=== PATIENT | female | born 1960 | race Caucasian/White ===

== ENCOUNTER → 2016-07-18 | Day surgery (SDC) | payer MEDICARE, OTHER ==
[~2016-07-18] MED LIST: ASPIRIN81 M2 PO; CELEBREX PO; CERTAGEN PO; CITALOPRAM HBR40 M1 PO; DIPHENYDRAMINE25 MG PO; FLEXERIL PO; GABAPENTIN400 MG PO; LAMICTAL PO; LAMICTAL25 MG PO; LODINE500 MG PO; LORTAB 10/500 T1 TAB PO; MOBIC PO; MOBIC15 MG PO; OXYCODONE HCL15 MG PO; OYSTER CALCIUM500 MG PO; PERCOCET 10/3251 TAB PO; PREDNISONE PO; ZANAFLEX4 M1 PO
--- NOTE | ~2016-07-18 | OR ---
Unit #: [id number] #: [id number] Patient: JEANETTE HALL [id number] [address] [place], [place] [address] [id number] MR#: [id number] NAME: JEANETTE HALL ROOM: Date of Procedure: 07/18/2016 Admission Date: 07/18/2016 Surgeon: Oscar Barajas M.D. : 1960 Attending Physician: Oscar Barajas M.D. Primary Care Physician: [facility]. OPERATIVE REPORT PREOPERATIVE DIAGNOSES 1. Herniated nucleus pulposus. 2. Radiculopathy. POSTOPERATIVE DIAGNOSES 1. Herniated nucleus pulposus. 2. Radiculopathy. PROCEDURE PERFORMED Transforaminal epidural steroid injection with intravenous sedation and fluoroscopic guidance for needle localization. INDICATIONS FOR PROCEDURE The patient is a 56-year-old female with return of right lower extremity pain associated with a known right L5-S1 disk herniation. She has lesser symptoms on the left. She has failed extensive prior conservative treatment and she is not interested in surgery. Epidural steroids in the past not very helpful. Now, the transforaminal injections have given her a very good relief. Last injection was done in early February. She got almost 5 months of fairly good relief. The pain has been increasing over the last month or so. Based on her history, pathology, and symptomatology, we are going to proceed with a second injection today. DESCRIPTION OF PROCEDURE The patient was placed in the prone position. Standard monitors were applied. 4 mg of Versed were given for sedation and anxiolysis, which were adequate. Vital signs remained stable. Sterile prep and drape of the lumbar area was performed. The skin at the L5-S1 level was localized with 1% lidocaine. A long 20-gauge Quincke point spinal needle was then advanced with biplanar fluoroscopic guidance to bring the needle tip within the neural foramina of the right at the L5-S1 level. The patient had mild paresthesia and this abated with maneuvering the needle. Position was confirmed with biplanar fluoroscopy and radiographic contrast. A dose of 80 mg of Depo-Medrol and 1 mL of 0.25% bupivacaine was then deposited. The patient tolerated the procedure otherwise well and was discharged to the recovery room in stable condition. Dictated by... Oscar Barajas M.D. [facility] Unit #: [id number] #: [id number] Patient: JEANETTE HALL TD: 07/18/2016 10:13 JOB #: [id number] OPERATIVE REPORT Page 1 of 1 X Oscar Barajas MD X PROCEDURE OPERATIVE NOTE
== END | disposition home or self-care (01) ==
LOC: CCSC 08:06
DX: M51.17 Intervertebral disc disorders with radiculopathy, lumbosacral region (principal)
CPT/HCPCS: J1040; J2250